=== PATIENT | female | born 1980 | race Caucasian/White ===

== ENCOUNTER → 2017-05-14 | Outpatient (CLI) | payer OTHER | END | disposition home or self-care (01) | LOC: KCIC DEXA 07:41 | DX: Z12.31 Encounter for screening mammogram for malignant neoplasm of breast (principal); M85.80 Other specified disorders of bone density and structure, unspecified site; M81.8 Other osteoporosis without current pathological fracture; Z87.311 Personal history of (healed) other pathological fracture | CPT/HCPCS: 77063; 77067; 77080 ==

== ENCOUNTER 2018-07-16 23:33 | Emergency (ER) | payer OTHER ==
[~2018-07-16] VITALS: Ht 175.3 cm; Wt 68.0 kg
[~2018-07-16 23:33] MED LIST: CABE0.5T PO; TRAZ-118 PO; [UNRECOGNIZED DRUG - CODE] PO
[2018-07-16 23:59] VITALS: BP 141/86
[2018-07-17] MEDS ORDERED: IPRATRPIUM/ALBUTEROL 0.5/2.5MG 3 ML NEBU. NEB ONE
[2018-07-17] MEDS ORDERED: DEXAMETHASONE 4 MG TABLET PO ONE
--- NOTE | 2018-07-17 00:07 | PHYS DOC ---
Past Medical History Past Medical History: Asthma Smoking: Quit Greater Than 1 Year Alcohol Use: None Drug Use: None Adult General Chief Complaint Chief Complaint: SHORTNESS OF BREATH HPI HPI Patient is a 37 year old female who presents with shortness of breath. She has been experiencing increased cough productive of white sputum as well a progressive dyspnea for the past two days. This afternoon, she was seen at an urgent care clinic at which time she was diagnosed with asthmatic bronchitis. She received an nebulizer treatment with improvement of her respiratory symptoms and was prescribed prophylactic antibiotics. They also prescribed an albuterol MDI which she has used twice this evening when her symptoms returned although she has persistent wheezing. Patient states she has some chest tightness most notable over her anterior chest wall with radiation into her back. She also believes that she felt feverish with chills at work. 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 Patient has had no history of blood clots, hemoptysis, palpitations, or calf swelling. Review of Systems Review of Systems Constitutional: Reports feeling feverish with chills.[] Eyes: Denies blurred vision or diplopia[] HENT: Denies nasal congestion or sore throat [] Respiratory: Reports productive cough, dyspnea, shortness of breath.[] Cardiovascular: Reports chest tightness. Denies palpitations or dizziness.[] GI: Denies abdominal pain, nausea, vomiting, or diarrhea [] Musculoskeletal: Denies back pain or joint pain [] Integument: Denies rash or skin lesions [] Neurologic: Denies headache, focal weakness or sensory changes [] Complete review of systems found to be within normal limits, except as documented in this note. Current Medications Current Medications Current Medications Medications (Trade) Dose Ordered Sig/Saima Start Time Stop Time Status Last Admin Dose Admin Albuterol/ Ipratropium (Duoneb) 3 ml 1X ONCE 07/17/18 00:00 07/17/18 00:01 DC 07/17/18 00:07 3 ML Dexamethasone (Decadron) 10 mg 1X ONCE 07/17/18 00:00 07/17/18 00:01 DC 07/17/18 00:09 10 MG Levalbuterol HCl (Xopenex) 1.25 mg ONCE ONCE 07/17/18 01:15 07/17/18 01:16 DC Lorazepam (Ativan) 0.5 mg 1X ONCE 07/17/18 01:15 07/17/18 01:16 DC 07/17/18 01:08 0.5 MG Allergies Allergies Allergies Coded Allergies Type Severity Reaction Last Updated Verified No Known Drug Allergies 03/07/14 No Physical Exam Physical Exam Constitutional: Well-developed anxious-appearing female in mild respiratory distress, nontoxic in appearance.. [] HENT: Normocephalic, atraumatic, oropharynx moist, no oral exudates, nose normal. [] Eyes: EOMI, conjunctiva normal, no discharge. [] Neck: Supple and nontender without lymphadenopathy. [] Cardiovascular:Heart rate tachycardic with regular rhythm, no murmur [] Lungs & Thorax: Diffuse inspiratory and expiratory wheezing bilaterally. Patient coughing with deep inspiration.[] Abdomen: Soft and nontender. [] Skin: Warm, dry, no erythema, no rash. [] Back: Moderate hypertonicity in left mid trapezius muscle. [] Extremities: Radial pulses +2 bilaterally, no cyanosis or mottling. [] Neurologic: Alert and oriented, normal motor function, normal sensory function, no focal deficits noted. [] Psychologic: Affect normal, judgement normal, mood anxious. [] Current Patient Data Vital Signs Vital Signs Date Time Temp Pulse Resp B/P (MAP) Pulse Ox O2 Delivery O2 Flow Rate FiO2 07/17/18 00:11 98 Room Air 07/16/18 23:59 99.0 107 141/86 (104) 99.0 Lab Values Laboratory Tests Test 07/16/18 23:44 POC Urine HCG, Qualitative Hcg negative (Negative) EKG EKG @2346: Sinus tachycardia with rate of 101. Normal axis. No T wave inversions. No ST segment depression or elevation.[] Radiology/Procedures Radiology/Procedures Chest PA Lateral: Trachea midline. No osseous deformity present. Cardiac silhouette not enlarged. No evidence of pleural effusion or pneumothorax. No evidence of consolidation or atelectasis. No acute cardiopulmonary process noted. Preliminary report provided by ED physician. [] Course & Med Decision Making Course & Med Decision Making Pertinent Labs and Imaging studies reviewed. (See chart for details) Patient is a 37-year-old female who presents with increased productive cough shortness breath over the past 2 days. She was seen in urgent care this afternoon diagnosed with asthmatic bronchitis. Patient given breathing treatment and steroids in the ED with improvement of her respiratory status. Patient remained tachycardic after breathing treatment and appeared mildly anxious and was given anxiolytics with improvement of her symptoms. She was prescribed an albuterol metered-dose inhaler today for the first time. Given the lack of improvement of her dyspnea at home this evening following use of her MDI she was provided with a spacer for home use. Chest x-ray showed no evidence of pneumonia or pleural effusion. Patient afebrile with good O2 saturations. She currently has a prescription for antibiotics given to her by the urgent care this afternoon. Patient will be provided a prescription for continued steroids on discharge. Patient stable for discharge with outpatient follow-up with PCP. Discussed findings and plan with patient and family, who acknowledge understanding and agreement. [] Dragon Disclaimer Dragon Disclaimer This electronic medical record was generated, in whole or in part, using a voice recognition dictation system. Departure Departure Impression: Primary Impression: Asthmatic bronchitis with acute exacerbation Additional Impressions: Shortness of breath Anxiety Disposition: 01 HOME, SELF-CARE Condition: STABLE Referrals: SATNAM MEJIA (PCP) Patient Instructions: Anxiety and Panic Attacks, [id number], Asthma Prevention-Brief, Asthma, Adult, [id number], Shortness of Breath, [id number] Scripts Lorazepam (ATIVAN) 0.5 Mg Tablet 0.5 MG PO BID PRN for ANXIETY, #10 TAB Prov: JACQUELINE MOYA DO 07/17/18 Prednisone (PREDNISONE) 20 Mg Tablet 2 TAB PO DAILY for 4 Days, #8 TAB Begin this medication tomorrow (07/18/18) Prov: JACQUELINE MOYA DO 07/17/18 Problem Qualifiers Primary Impression: Asthmatic bronchitis with acute exacerbation Asthma severity: mild Asthma persistence: intermittent Qualified Codes: J45.21 - Mild intermittent asthma with (acute) exacerbation JACQUELINE MOYA DO July 17, 2018 00:07
[2018-07-17] MEDS ORDERED: PRED20TA PO ×2 (00:40→00:43)
[2018-07-17] MEDS ORDERED: LEVALBUTEROL 1.25 MG/0.5 ML NEBU. NEB ONE (01:15)
[2018-07-17] MEDS ORDERED: LORazepam 0.5 MG TABLET PO ONE (01:15)
[2018-07-17] MEDS ORDERED: LORA0.5T96 PO (01:35)
--- NOTE | 2018-07-17 05:46 | RAD ---
PA and lateral chest. HISTORY: Dyspnea PA and lateral views were taken of the chest. Lungs are clear. Heart is normal in size without heart failure. There is no pleural effusion. There is a midthoracic mild compression fracture. IMPRESSION: 1. No acute infiltrates. Electronically signed by: Sander Chavez MD (07/17/2018 5:43 AM) [id number]
--- NOTE | 2018-07-18 09:02 | EKG ---
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
== END 2018-07-17 01:40 | disposition home or self-care (01) ==
LOC: ER 23:33
DX: J45.21 Mild intermittent asthma with (acute) exacerbation (principal); F41.9 Anxiety disorder, unspecified; R07.89 Other chest pain; Z87.891 Personal history of nicotine dependence
CPT/HCPCS: 71046; 81025; 93005; 94640; 99284; J7620; J8540; 94664

== ENCOUNTER → 2018-09-26 | Outpatient (CLI) | payer OTHER ==
[~2018-09-26] MED LIST changes: +LORA0.5T96 PO; +PRED20TA PO
--- NOTE | 2018-09-26 11:51 | KCIC ---
Bilateral digital screening mammograms with 3-D tomosynthesis: Reason for examination: Routine screening. Comparison is made to previous studies dated 05/14/2017 03/07/2014. Bilateral mammograms in CC and oblique projections were obtained with 2-D imaging and 3-D tomosynthesis imaging on a Siemens Inspiration unit and reviewed on the workstation. Interpretation was made with the benefit of CAD. The skin and nipples show no abnormalities. No abnormal axillary lymph nodes are seen. The breast parenchyma is extremely dense. (Breast density: Category D.) There are no dominant masses, suspicious calcifications or architectural distortion. Impression: No evidence of malignancy. Recommend routine screening. Your patient's mammogram demonstrates that she has dense breast tissue (breast density category C or D), which could hide abnormalities, and if she has other risk factors for breast cancer that have been identified, she might benefit from supplemental screening tests that may be suggested by you as her ordering physician. Dense breast tissue, in and of itself, is a relatively common condition. Therefore, this information is not provided to cause undue concern, but rather to raise your awareness and to promote discussion with your patient regarding the presence of other risk factors, in addition to dense breast tissue. Your patient's mammography results will be sent to her. BI-RAD Category 1: Negative. "Our facility is accredited by the [employer] Mammography Program." This patient's information has been entered into a reminder system for the patient to be notified with the results of her examination and a target date for the next mammogram. Electronically signed by: Melina Michaud MD (09/26/2018 11:49 AM) [id number]
== END | disposition home or self-care (01) ==
LOC: KCIC MAMMO 10:16
PROVIDERS: ATTEND Family Medicine
DX: Z12.31 Encounter for screening mammogram for malignant neoplasm of breast (principal); N64.89 Other specified disorders of breast
CPT/HCPCS: 77063; 77067

== ENCOUNTER → 2019-11-07 | Outpatient (CLI) | payer OTHER ==
--- NOTE | 2019-11-07 13:21 | KCIC ---
Bilateral digital screening mammograms with 3-D tomosynthesis: Reason for examination: Routine screening. Comparison is made to previous studies dated back to 03/07/2014. Bilateral mammograms in CC and oblique projections were obtained with 2-D imaging and 3-D tomosynthesis imaging on a Siemens Inspiration unit and reviewed on the workstation. Interpretation was made with the benefit of CAD. The skin and nipples show no abnormalities. No abnormal axillary lymph nodes are seen. The breast parenchyma is extremely dense. (Breast density: Category D.) There appears to be a small nodule at the 8:00 position of the right breast approximately 7.5 cm from the nipple. Further evaluation with ultrasound is recommended. There are no other dominant masses, suspicious calcifications or architectural distortion. Impression: Small 5 mm nodule at the 8:00 position of the right breast approximately 7.5 cm from the nipple. Recommend further evaluation with ultrasound. Your patient's mammogram demonstrates that she has dense breast tissue (breast density category C or D), which could hide abnormalities, and if she has other risk factors for breast cancer that have been identified, she might benefit from supplemental screening tests that may be suggested by you as her ordering physician. Dense breast tissue, in and of itself, is a relatively common condition. Therefore, this information is not provided to cause undue concern, but rather to raise your awareness and to promote discussion with your patient regarding the presence of other risk factors, in addition to dense breast tissue. Your patient's mammography results will be sent to her. BI-RAD Category 0: Incomplete. Needs additional imaging evaluation. "Our facility is accredited by the [employer] Mammography Program." This patient's information has been entered into a reminder system for the patient to be notified with the results of her examination and a target date for the next mammogram. Electronically signed by: Melina Michaud MD (11/07/2019 1:18 PM) [email or web address]
== END | disposition home or self-care (01) ==
LOC: KCIC MAMMO 09:43
PROVIDERS: ATTEND Family Medicine
DX: Z12.31 Encounter for screening mammogram for malignant neoplasm of breast (principal); N64.89 Other specified disorders of breast
CPT/HCPCS: 77063; 77067

== ENCOUNTER → 2019-11-30 | Outpatient (CLI) | payer OTHER ==
--- NOTE | 2019-11-30 11:43 | KCIC ---
EXAM: Right breast sonogram. HISTORY: 39-year-old female presents for sonographic evaluation of a nodule within the right breast demonstrated on a mammogram dated 11/07/2019. TECHNIQUE: Sonographic imaging of the right breast targeted to the site of mammographic nodularity was performed. COMPARISON: Mammogram dated 11/07/2019. FINDINGS: There is a well-circumscribed oval nonvascular hypoechoic lesion at the 7:30 position 7 cm from the nipple measuring 1.4 cm in maximum dimension. The sonographic appearance favors a fibroadenoma. This corresponds with the mammographic finding of concern. There is dense breast pattern, and there are fibrocystic changes elsewhere within the right breast. IMPRESSION: 1. 1.4 cm benign-appearing nodule within the right breast at the 7:30 position, the appearance of which favors a fibroadenoma. 2. BI-RADS Category 3: Probably benign finding(s). Short term follow up with a right breast sonogram in 6 months is recommended to confirm stability. Electronically signed by: Yuki Gutierrez MD (11/30/2019 11:40 AM) [email or web address]
== END | disposition home or self-care (01) ==
LOC: KCIC US 10:34
PROVIDERS: ATTEND Family Medicine
DX: N63.13 Unspecified lump in the right breast, lower outer quadrant (principal)
CPT/HCPCS: 76641

== ENCOUNTER → 2020-08-08 | Outpatient (CLI) | payer OTHER ==
--- NOTE | 2020-08-08 11:12 | KCIC ---
Right breast ultrasound: Reason for examination: Follow-up nodule. Comparison is made to previous study dated 11/30/2019. Ultrasound examination of the right breast and axilla was performed. At the 7:30 position 7 cm from the nipple, there continues to be a 1.4 cm hypoechoic lesion in parall el orientation which may represent a fibroadenoma or isolated fat lobule. This shows no significant i nterval change. No new cystic or solid lesions are seen. No abnormal appearing lymph nodes are seen i n the right axilla. IMPRESSION: No significant interval change in the hypoechoic nodule at the 7:30 position. Recommend continued 6 m onth follow-up ultrasound which can be performed at the time of bilateral mammograms. BI-RADS Category 3: Probably Benign. "Our facility is accredited by the [employer] Mammography Program." This patient's information has been entered into a reminder system for the patient to be notified wit h the results of her examination and a target date for the next mammogram. Electronically signed by: Melina Michaud MD (08/08/2020 11:10 AM) [email or web address]
== END ==
LOC: KCIC US 09:53
PROVIDERS: ATTEND Family Medicine
DX: N63.13 Unspecified lump in the right breast, lower outer quadrant (principal)
CPT/HCPCS: 76641

== ENCOUNTER → 2021-02-18 | Outpatient (CLI) | payer OTHER ==
--- NOTE | 2021-02-18 11:42 | KCIC ---
EXAM: DUAL ENERGY X-RAY ABSORPTIOMETRY (DEXA). HISTORY: Postmenopausal screening. FINDINGS: The lowest measured T-score is -1.6 in the left hip, based on a bone mineral density of 0.7 44 g/cm^2. Refer to the worksheets for full detail. There has been a 1.1 percent decrease in density of the left hip and 1.2 percent decrease in density of the lumbar spine compared to a study performed 05/14/2017. IMPRESSION: 1. Low bone mass. Bone mineral density yields a T-score between -1.0 and -2.5. Fracture risk is incre ased. 2. FRAX report: Not calculated. METHODOLOGY: Dual energy x-ray absorptiometry was performed to measure bone mineral density. The foll owing analysis is based on the 2019 Official Positions of the International Society for Clinical Dens itometry: Measurements of the hips and the average of L1-L4 are preferred. When the spine and/or hip cannot be feasibly measured or interpreted, or in the setting of hyperparathyroidism, distal radial bone minera l density may be measured. The lumbar spine T-score is based on the average bone mineral density of L1-L4. In the setting of art ifact or anatomic abnormality, some lumbar levels may be excluded, and the remaining levels used for calculation. A single lumbar level is not used for diagnosis, and if only a single level is available for assessment, another anatomic site will be used to assign a diagnosis. The hip T-score is based on the bone mineral density measurement of the femoral neck or total proxima l femur of either side, whichever is lowest. Bilateral mean values are not used for diagnosis. The forearm T-score is derived from 33% of the distal radius of the nondominant forearm. Electronically signed by: Yuki Gutierrez MD (02/18/2021 11:39 AM) [id number]
== END ==
LOC: KCIC DEXA 10:22
PROVIDERS: ATTEND Family Medicine
DX: M85.88 Other specified disorders of bone density and structure, other site (principal)
CPT/HCPCS: 77080

== ENCOUNTER → 2021-02-18 | Outpatient (CLI) | payer OTHER ==
--- NOTE | 2021-02-18 10:33 | KCIC ---
BILATERAL DIAGNOSTIC 3-D MAMMOGRAPHY AND RIGHT BREAST ULTRASOUND History: Six-month follow-up ultrasound. Patient is due for bilateral mammogram. Comparison: Bilateral mammogram 11/07/2019 and 2018. Right breast ultrasound 11/30/2019 and August 08. Technique: Routine MLO and CC tomosynthesis (3D) digital views performed. Images reviewed by the radi ologist at dedicated workstation. Findings: Breast Tissue Density D :The breasts are extremely dense, which lowers the sensitivity of mammography . There are no dominant masses, suspicious microcalcifications or architectural distortion. Real-time ultrasound imaging of the right breast is performed. At the 7:30 position 7 cm from the nipple, parallel, hypoechoic, well circumscribed, nonshadowing les ion is smaller measuring up to 1 cm, previously 1.5 cm. Lesion may be a prominent fat lobule versus a fibroadenoma. IMPRESSION: 1. No mammographic evidence of malignancy. 2. Benign-appearing prominent fat lobule versus fibroadenoma in the right breast at the 7:30 positio n 7 cm from the nipple is smaller sonographically. Recommend additional ultrasound follow-up in 12 mo nths to document 2 years of stability. Recommend routine mammogram screening. BI-RADS category 3: Probably benign. The images were reviewed with computer-aided detection. Patient information is entered into the reminder system with a target due date for the next screening mammogram. Mammography is the most sensitive method for finding small breast cancers, but it does not detect the m all and is not a substitute for careful clinical examination. A negative mammogram does not negate a clinically suspicious finding and should not result in delay in biopsying a clinically suspicious a bnormality. "Our facility is accredited by the [employer] Mammography Program." Electronically signed by: Charles Downs MD (02/18/2021 10:31 AM) [email or web address]
== END ==
LOC: KCIC MAMMO 09:02
PROVIDERS: ATTEND Family Medicine
DX: R92.8 Other abnormal and inconclusive findings on diagnostic imaging of breast (principal)
CPT/HCPCS: 76641; 77066; G0279; 77062

== ENCOUNTER → 2021-04-04 | Outpatient (CLI) | payer OTHER ==
--- NOTE | 2021-04-04 10:09 | KCIC ---
MRI STUDY OF THE RIGHT LOWER LEG WITHOUT CONTRAST Clinical indications: New pain in midshaft of tibia for 3 weeks. No known recent injury. Sharp pain w hile walking. COMPARISON: None available. TECHNIQUE: Noncontrast MRI sequences of the right lower leg was performed in all 3 planes. FINDINGS: An intramedullary jasper is seen extending throughout the length of the right tibia with proxi mal and distal screws. There is paramagnetic metallic susceptibility artifact as a result. On series 12 and axial image 26, there is a small focus of bone marrow increased T2 signal of the distal tibial shaft adjacent to the jasper. This is seen on sagittal series 6 and image 13 as well.. This could be se condary to artifact but focus of stress reaction bone marrow edema is possible. An old healed fractur e of the mid to distal shaft of the right tibia is seen with associated deformity. No nonunion is roxi dent. There is an old healed fracture of the mid to distal shaft of the right fibula. No T2 bone león ow edema is seen. No nonunion is seen. No acute-appearing fracture is evident elsewhere. No cortical erosion is seen. No soft tissue mass is evident. No soft tissue or muscle edema is seen. No abscess o r soft tissue hematoma is seen. IMPRESSION: Old healed fractures of the mid to distal shafts of the right tibia and fibula. No acute- appearing fracture is evident. Small focus of increased T2 signal of the bone marrow of the mid to distal shaft of the right tibia a djacent to the intramedullary jasper. This could represent artifact from the jasper but stress reaction bon e marrow edema is possible. No marrow infiltrative process is seen otherwise. Electronically signed by: Bar Moses MD (04/04/2021 10:07 AM) [place] [id number]
== END ==
LOC: KCIC MRI 07:53
DX: M79.661 Pain in right lower leg (principal)
CPT/HCPCS: 73718